=== PATIENT | male | born 1960 | race Caucasian/White ===

== ENCOUNTER 2018-05-22 07:28 | Day surgery (SDC) | payer BC, SELFPAY ==
--- NOTE | 2018-05-21 09:11 | EKG12_ITS ---
Test Reason : PREOP Blood Pressure : / mmHG Vent. Rate : 060 BPM Atrial Rate : 060 BPM P-R Int : 138 ms QRS Dur : 090 ms QT Int : 432 ms P-R-T Axes : 047 047 019 degrees QTc Int : 432 ms Normal sinus rhythm Normal ECG Confirmed by DASIA TORRES, PJ ([id number]), business editor MARCIANO HIGGINS ([id number]) on 05/24/2018 1:47:03 PM Referred By: Hector Zuluaga Confirmed By:PJ FORMAN MD
[2018-05-21 10:14] LABS: Hematocrit 44.2 % (40-54); Hemoglobin 14.9 g/dl (13.0-16.5); Mean Corp Hgb Conc 33.7 g/gl (32-36); Mean Corpuscular Hgb 31.3 pg (27.0-32.0); Mean Corpuscular Volume 92.9 fL (80-94); Mean Platelet Vol. 10.3 fl (6.2-12.0); Platelet Count 220 K/mm3 (150-450); RBC Distribution Width CV 12.7 % (11.6-14.6); RBC Distribution Width SD 43.6 fl (35.1-43.9); Red Blood Count 4.76 M/mm3 (4.6-6.2); Scan Indicated on CBC? Y/N NO; White Blood Count 7.2 K/mm3 (4.4-11.0)
[2018-05-21 11:10] LABS: AST(SGOT) 35 U/L (15-37); Alanine Aminotransfer ALT/SGPT 37 U/L (16-61); Albumin, Serum 3.6 g/dL (3.2-5.0); Alkaline Phosphatase 64 U/L (45-117); Anion Gap 9 (5-15); BUN 13 mg/dL (7-18); BUN/Creat Ratio 14.7 RATIO (10-20); Bilirubin, Direct 0.11 mg/dL (0.00-0.30); Calcium,Total 8.7 mg/dL (8.5-10.1); Chloride 107 mmol/L (98-107); Creatinine, Serum 0.88 mg/dL (0.70-1.30); EST Glomerular Filtration Rate 94 mL/min (>60); Est Glom Filt Rate - Afr Amer 114 mL/min (>60); Globulin 3.6 g/dL (2.2-4.2); Glucose 83 mg/dL (74-106); Potassium 4.4 mmol/L (3.5-5.1); Protein, Total 7.2 g/dL (6.4-8.2); Sodium Level 142 mmol/L (136-145)
[2018-05-22] VITALS (8 sets, daily range): BP systolic 91–131; BP diastolic 56–77; PULSE 48–66; RESP 12–16; TEMP 36.1–36.7; O2SAT 94–98; BMI 24.0
--- NOTE | 2018-05-22 09:15 | LIP_PTH ---
PATIENT: MIMA ERNST LOC: [facility] [place] U#:[id number] AGE/SX: 57/M ROOM: RE05/22/[address]: Dr. Hector Zuluaga MD : [id number] BED: DIS: 05/22/2018 SPEC #: [id number] RECD: 05/22/18 11:18 STATUS: JO JOE #: [id number] LORENA: 05/22/18 09:[address]: Hector Zuluaga DEPT: SURGICAL PATHOLOGY RECD BY: Matt Abreu ENTERED: 05/22/18 11:19 SP TYPE: LIPOMA TIMBO DR: Winsome Phillips, AUTOMATIC EQUIPMENT TECHNICIAN-C Tissues: LIPOMA OF CORD Procedures: Surgery Specimen Level II Surgery Specimen Level III HEADER OPERATION: Open left inguinal hernia repair with mesh PRE-OP DIAGNOSIS: Left inguinal hernia TISSUE SUBMITTED: Cord lipoma and hernia sac MICROSCOPIC DIAGNOSIS Left inguinal hernia sac, herniorrhaphy: Fibrosis and focal minimal chronic inflammation. Cord lipoma, excision: Mature adipose tissue consistent with cord lipoma. AM:jareth 05/23/18 MICROSCOPIC DESCRIPTION Slides are reviewed. GROSS DESCRIPTION Received in fixative is one container labeled with the patient's name and designated cord lipoma and hernia sac. The specimen consists of an irregular piece of muñoz soft tissue measuring 5 x 0.5 x 0.2 cm and consistent with hernia. Also present in the container is a piece of yellow adipose tissue measuring 8 x 4 x 2 cm and consistent with lipoma. Sections reveal yellow adipose cut surfaces without area of hemorrhage, necrosis or cystic degeneration. General Repairer sections are submitted in two cassettes as follows: 1 ? muñoz soft tissue, 2 ? yellow adipose tissue. / SJ:jareth 05/22/18 TC:5 CPT: 25611, 23359
[2018-05-22] MEDS: Bupivacaine Mpf 0.5% 30 ML VIAL (10:38)
--- NOTE | 2018-05-22 10:43 | DCINST_ITS ---
Discharge Diet: Light diet - advance as tolerated Discharge Activity: Return to Normal Activity, May Drive - when you are no longer taking narcotic pain medications., May Shower - with the bandage in place 1-2 days after surgery. Lifting Restrictions: 20 pounds for 8 weeks. Additional Activity Instructions:: Climbing stairs is fine, walking is encouraged. Sitting in bed may be uncomfortable. Sitting up using your lateral muscles (sitting up sideways) is usually more comfortable. Do not drive, work heavy equipment of sign legal documents for 24 hours. If your hernia repair was an ingunial repair, you may have scrotal swelling, an ice pack and/or athletic support can provide more comfort. Pain medications may cause nausea, you should typically eat light foods as you take your pain medications. Pain medications may also cause constipation. If you have difficulty with this, discuss with your doctor. Call your doctor if your incision/area has: Continuous Slow Oozing, Sudden Increased Bleeding, Increased Pain/ Swelling, Increased Redness, Foul Smelling Discharge Call your doctor if you observe: Fever of 101 or Higher Suture Line Care: Avoid Pulling/Pushing, Avoid Pinching/Bending Additional Dressing/Incision Instructions:: Leave the operative bandage on for 2 -3 days. When you remove the bandage, leave the steri-strips on place until your follow up appointment or they fall off. Allergies/Adverse Reactions: Allergies Penicillins [PCN] Allergy (Verified 05/06/18 11:27) Rash Medications to take at Discharge Oxycodone HCl/Acetaminophen [Percocet 5/325] 1 tab PO Q6H PRN PRN 7 Days #14 tab 05/22/18 The following prescriptions were given: Oxycodone HCl/Acetaminophen [Percocet 5/325] 1 tab PO Q6H PRN PRN 7 Days #14 tab PRN Reason: Pain Primary Care Physician: Winsome Phillips NP-C [Primary Care Provider] - Test Results: Test results from this visit will be discussed in further detail at your follow- up appointment, if applicable. Please Follow Up With: Hector Zuluaga MD - [phone] When: Plan to have a follow up appointment in 7 days. Call to schedule.
--- NOTE | 2018-05-22 10:46 | OP.PCM_ITS ---
Report of Operation Date of Procedure: 05/22/18 Pre-Operative Diagnosis: left inguinal hernia Post-Operative Diagnosis: indirect left inguinal hernia Surgery/Procedure Performed:: open left inguinal hernia repair with mesh Description of Surgical Findings:: indirect editing computer publisher: None Type of Anesthesia:: Local MAC Anesthesiologist: Mnapreet Tello - ASA2 Specimen's removed: cord lipoma, hernia sac - small Estimated Blood Loss (mL): minimal Fluids Replaced: 1400 Description of Procedure: The patient was brought to the operating suite. Sign in was performed verifying patient, site, procedure, position, and DVT prophylaxis with SCDs. Patient received clindamycin 60 mg due to penicillin allergy for antibiotic prophylaxis. Following induction of IV sedation, the patient?s left inguinal region was prepped and draped in the usual fashion. Timeout was performed verifying patient, site, position. Local anesthetic was injected at the site of the anterior superior iliac spine for a regional block. The 50-50 mixture of lidocaine and Marcaine was then injected along the planned course of the skin incision. A linear incision was made and dissection carried down to the external oblique aponeurosis. Traversing veins ligated with 3-0 Vicryl ties and divided. Local anesthetic was then injected into the inguinal canal. A clean scalpel blade was used to open the lower canal in the direction of the fibers and a Metzenbaum scissor was used to further dissect and open the canal. Care was taken to avoid injury to the ilioinguinal nerve. Following this, the spermatic cord was surrounded at the level of the pubic tubercle and brought up in the operative field with a Nazario drain. Dissection was continued up to the internal ring clearing the cremasteric fibers. The patient was noted to have no direct inguinal hernia defect. Dissection of the cord was undertaken which demonstrated a large cord lipoma and a small indirect defect. the cord lipoma was dissected and amputated and sent for pathology area. The hernia sac was opened. There was no sliding component. High ligation of sac was performed and excess sac was sent as specimen. the small Bard plug was placed into the fascial defect and secured with 0 Prolene suture. The Onlay mesh was secured using a Bard keyhole shaped mesh secured at the level of the pubic tubercle and run from Oliver?s ligament transitioning to the ilioinguinal ligament inferiorly using an 0 Prolene suture. Next an 0 Prolene suture was used to secure the mesh to the transversus arch. The tails of the mesh were placed around the spermatic cord to create a new internal ring and the tails closed with a running 0 Prolene suture. The spermatic cord and the ilioinguinal nerve returned to its anatomic position. The external oblique was closed with a running 3-0 Vicryl suture. Subcutaneous fat was closed with interrupted 3-0 Vicryl suture. Skin was closed with a running 4-0 Monocryl subcuticular sutures. Steri-Strips and bandages were applied. The patient was brought to recovery room in stable condition. Grafts/Implants Used: Bard small perfix plug - [id number] lot [id number] exp -
== END 2018-05-22 13:02 | disposition home or self-care (01) ==
LOC: SDC 07:29 → AC 07:29
PROVIDERS: Family Provider Nurse Practitioner Family; PCP Nurse Practitioner Family; Visit Provider Surgery
PROC: (CPT 49505; principal; 2018-05-22 09:00)
DX: K40.90 Unilateral inguinal hernia, without obstruction or gangrene, not specified as recurrent (principal); D17.6 Benign lipomatous neoplasm of spermatic cord; K21.9 Gastro-esophageal reflux disease without esophagitis; Z87.891 Personal history of nicotine dependence; G25.81 Restless legs syndrome
CPT/HCPCS: 49505; 36415; 80048; 80076; 85027; 85610; 85730; 88302; 88304; 93005; J7120; C1781; J2405